=== PATIENT | male | born 1955 | race Caucasian/White ===

== ENCOUNTER 2024-12-08 11:13 | Emergency (ER) | payer MEDICARE, OTHER, SELFPAY ==
[2024-12-08 11:19] VITALS: BP 152/88; PULSE 96; RESP 18; TEMP 37.3; O2SAT 98; BMI 25.1
--- NOTE | 2024-12-08 11:33 | ED.MALEGU ---
HPI - Male Genitourinary General Chief complaint: Urogenital-Male Stated complaint: possible UTI or kidney infection Time Seen by Provider: 12/08/24 11:33 Source: patient Mode of arrival: Ambulatory History of Present Illness HPI Narrative: Patient is a 69-year-old male with a past medical history of colon and rectal cancer with surgical resection, does have a nephrostomy tube and right ileostomy tube this is all secondary to his history of cancer. Comes into the ED from home for evaluation of dysuria, polyuria, dark colored urine. He denies any other symptoms at this time. He states that he normally does not use his nephrostomy tube to his left, states that it is typically changed every 3 months. He states that he normally piece from his urethra. He denies any other symptoms at this time. Related Data Previous Rx's ?Medication ?Instructions ?Recorded cefpodoxime 200 mg tablet 200 mg PO Q12H 1 week #14 tabs 12/08/24 Allergies Allergy/AdvReac Type Severity Reaction Status Date / Time No Known Allergies Allergy Verified 12/08/24 11:24 Review of Systems Review of Systems Narrative: General: Denies fever, chills, weight loss HEENT: Denies headache, eye drainage, eye irritation, head trauma, sore throat, voice change Cardiovascular: Denies any chest pain, palpitations, tachycardia Respiratory: Denies any shortness of breath, cough, wheeze, stridor GI/: Positive dysuria, frequency Denies any abdominal pain, nausea, vomiting, diarrhea, bright red blood per rectum, melanotic stools MSK: Denies any joint pain, muscle pains, swelling Skin: Denies any rashes, lesions, discoloration Neuro: Denies any headache, lightheadedness, dizziness, fainting, weakness Psych: Denies SI/HI Patient History Social History Smoking Status: Never smoker Smoking Status: Never smoker Exam Narrative Exam Narrative: General: Cooperative, well-developed, not in acute distress HEENT: Normocephalic, atraumatic, PERRLA, normal sclera, eyelids normal Neck: Active full range of motion, atraumatic Chest: Normal to inspection, negative crepitus, no overlying erythema ecchymosis Respiratory: Normal respiratory effort, not in acute respiratory distress, clear to auscultation bilaterally negative cough, wheeze, tachypnea, rhonchi, rales Cardiology: Regular rate rhythm negative gallop, murmur, rubs GI/: Ileostomy bag in place draining appropriately, nephrostomy to the left side, does have little bit of drainage, No tenderness to palpation, soft, non rigid, normal to inspection, exam deferred MSK: Full active range of motion in all 4 extremities, atraumatic, no tenderness to palpation of any bony prominences Skin: No rashes or lesions noted Neuro: Alert awake oriented x3, moves all 4 extremities spontaneously, cranial nerves intact, able to answer all questions appropriately follows commands appropriately Psych: Cooperative, negative suicidal or homicidal ideations Initial Vital Signs Initial Vital Signs: Vital Signs Temperature 99.1 F 12/08/24 11:19 Pulse Rate 96 H 12/08/24 11:19 Respiratory Rate 18 12/08/24 11:19 Blood Pressure 152/88 H 12/08/24 11:19 Pulse Oximetry 98 12/08/24 11:19 Oxygen Delivery Method Room Air 12/08/24 11:19 Course Orders Ordered: ED Orders 12/08/24 11:35 Urinalysis and Microscopic Stat Urine Culture Stat Urine Culture Stat 12/08/24 11:50 CBC Auto Diff [Complete Blood Count AUTO DIFF] Stat CMP [Comprehensive Metabolic Panel] Stat Ondansetron HCl (Ondansetron 4 Mg/2 Ml Inj) 4 mg IV NOW PRN PRN Reason: Nausea And Vomiting Ondansetron HCl (Ondansetron 4 Mg Odt) 4 mg PO NOW PRN PRN Reason: Nausea And Vomiting Discontinued Medications Ceftriaxone Sodium 1,000 mg/ (Sodium Chloride) 100 mls @ 200 mls/hr IV NOW ONE Stop: 12/08/24 12:25 Vital Signs Vital signs: Vital Signs - 8 hr 12/08/24 11:19 Temperature 99.1 F Pulse Rate 96 H Respiratory Rate 18 Blood Pressure 152/88 H Pulse Oximetry 98 Oxygen Delivery Method Room Air MDM - Male Genitourinary Lab Data 12/08/24 11:50 12/08/24 11:50 Labs: Lab Results 12/08/24 12/08/24 Range/Units 11:35 11:50 WBC 6.2 (4.5-11.0) X10^3/uL RBC 4.26 L (4.5-5.9) X10^6/uL Hgb 12.5 L (13.5-17.5) g/dL Hct 36.9 L (41-53) % MCV 86.6 (80-100) fL MCH 29.4 (26-34) PG MCHC 33.9 (30-36) % RDW 15.0 H (11.6-14.8) % Plt Count 180 (150-400) X10^3/uL Neut % (Auto) 76.1 H (50-75) % Lymph % (Auto) 9.5 L (25-40) % Potter % (Auto) 11.4 (3-14) % Eos % (Auto) 2.6 (2-4) % Baso % (Auto) 0.4 (0-2) % Neut # (Auto) 4700 (1495-6408) /uL Lymph # (Auto) 600 L (9457-7722) /uL Potter # (Auto) 700 (0-900) /uL Eos # (Auto) 200 (0-450) /uL Baso # (Auto) 0 (0-100) /uL Sodium 132 L (137-145) mmol/L Potassium 3.6 (3.4-5.1) mmol/L Chloride 104 (98-107) mmol/L Carbon Dioxide 16 L (22-32) mmol/L BUN 20 (9-20) mg/dL Creatinine 1.39 H (0.66-1.25) mg/dL Estimated GFR 55 L (>60) mL/min BUN/Creatinine Ratio 14.4 (6-22) Glucose 98 (70-99) mg/dL Calcium 8.7 (8.4-10.2) mg/dL Total Bilirubin 1.4 H (0.2-1.3) mg/dL AST 22 (17-59) IU/L ALT 15 (<50) IU/L Alkaline Phosphatase 75 (38-126) U/L Total Protein 7.4 (6.3-8.2) g/dL Albumin 3.9 (3.5-5.0) g/dL Globulin 3.5 (1.7-4.1) g/dL Albumin/Globulin Ratio 1.1 (1.0-2.8) Urine Color Yellow Urine Appearance Clear Urine pH 6.5 (4.5-8.0) Ur Specific [place] <=1.005 (1.000-1.035) Urine Protein 1+ H (Negative) Urine Glucose (UA) Negative (Negative) g/dL Urine Ketones Negative (NEGATIVE) Urine Occult Blood 2+ H (Negative) Urine Nitrate Positive H (Negative) Urine Bilirubin Negative (NEGATIVE) Urine Urobilinogen 0.2 (0.2) E.U./dL Ur Leukocyte Esterase 3+ H (NEGATIVE) Urine RBC 1-5/hpf (0-5/HPF) Urine WBC 10-30/hpf H (0-5/HPF) Ur Squamous Epith Cells None seen (0-5/HPF) Urine Bacteria Many (>30) H (None) Ur Culture Indicated? Specimen cultured Vol Urine Centrifuged 10ml (spun) MDM Narrative Medical decision making narrative: Patient is a 69-year-old male who has a left-sided nephrostomy tube and ileostomy after surgical resection for his history of colon and rectal cancer. Comes into the ED from home for evaluation of dysuria frequency foul-smelling urine, ongoing persistent for the past 3 days, he states that he normally does urinate from his urethra, he states that he barely uses his nephrostomy tube normally gets it changed every 3 months. States that he did hook it up yesterday with very mild amount of drainage which he states it is normal. He denies any other symptoms at this time. On my exam ileostomy bag looks appropriate, nephrostomy tube to the left side without any surrounding erythema ecchymosis gross deformity or pain. Patient had lab work and urinalysis performed here in the emergency department. Patient lab work unremarkable, however urinalysis was consistent with acute urinary tract infection, patient was given 1 g Rocephin and sent home with oral antibiotics and instructed to follow up with his care team. He verbalized understanding of this and agrees to being discharged home with outpatient follow up Discharge Plan Departure Patient Disposition: Home Clinical Impression: Urinary tract infection Instructions: DI for Urinary Tract Infection (UTI) Activity Restrictions/Additional Instructions: Please follow up with your care team Please read the discharge instructions sheet carefully and bring all papers to all doctor follow-up visits, as it may contain information that your doctor may want to see. Disease processes change and evolve, if your symptoms worsen or if you develop any new symptoms that are concerning to you please return for evaluation. Your evaluation today does not show any evidence of any life-threatening/serious illnesses requiring admission to the hospital or surgery. Please follow-up with your doctor for re-evaluation in approximately 1 day. Seek immediate medical attention for any worrisome symptoms. *If you do not have a primary care provider please contact the [facility] Resource line at [phone]. They will ask some questions about your medical history and help get you set up with a doctor in the community. Prescriptions: New cefpodoxime 200 mg tablet 200 mg PO Q12H 7 Days Qty: 14 0RF Rx Instructions: must administer with a meal/food Stand Alone Forms: Patient Portal/API
[2024-12-08 11:56] LABS: Appearance Urine UA CLEAR; Bilirubin Urine UA NEGATIVE (NEGATIVE); Color Urine UA YELLOW; Glucose Urine UA NEGATIVE (Negative); Ketones Urine UA NEGATIVE (NEGATIVE); Leukocyte Esterase Urine UA 3+ (NEGATIVE); Nitrite Urine UA POSITIVE (Negative); Occult Blood Urine UA 2+ (Negative); Protein Urine UA 1+ (Negative); Specific Gravity Urine UA <=1.005 (1.000-1.035); Urobilinogen Urine UA 0.2 E.U./dL (0.2); pH Urine UA 6.5 (4.5-8.0)
[2024-12-08 11:58] VITALS: PULSE 86; O2SAT 98
[2024-12-08 11:59] LABS: Add Manual Diff / Slide Review NO; Hematocrit 36.9 % (41-53); Hemoglobin 12.5 g/dL (13.5-17.5); Lymphocytes Absolute Auto 600 /uL (1100-4500); Mean Corpuscular HGB Conc 33.9 % (30-36); Mean Corpuscular Hemoglobin 29.4 PG (26-34); Mean Corpuscular Volume 86.6 fL (80-100); Platelet Count 180 X10^3/uL (150-400)
[2024-12-08 11:59] LABS: Culture Indicated Urine Specimen Cultured
[2024-12-08 12:00] VITALS: PULSE 87; O2SAT 98
[2024-12-08 12:14] LABS: Alanine Aminotransferase 15 IU/L (<50); Albumin 3.9 g/dL (3.5-5.0); Albumin Globulin Ratio 1.1 (1.0-2.8); Alkaline Phosphatase 75 U/L (38-126); Blood Urea Nitrogen 20 mg/dL (9-20); Calcium 8.7 mg/dL (8.4-10.2); Carbon Dioxide 16 mmol/L (22-32); Chloride 104 mmol/L (98-107); Estimated Glomerular Filt Rate 55 mL/min (>60); Globulin 3.5 g/dL (1.7-4.1); Glucose 98 mg/dL (70-99); HEMOLYSIS < 15 (0-50); Potassium 3.6 mmol/L (3.4-5.1); Sodium 132 mmol/L (137-145); Total Protein 7.4 g/dL (6.3-8.2)
[2024-12-08 12:30] VITALS: PULSE 86; O2SAT 97
[2024-12-08 13:21] VITALS: BP 118/77; PULSE 84; RESP 16; O2SAT 98
== END 2024-12-08 13:22 | disposition home or self-care (01) ==
PROVIDERS: Emergency Provider Student in an Organized Health Care Education/Training Program
DX: N39.0 Urinary tract infection, site not specified (principal); Z93.6 Other artificial openings of urinary tract status; Z93.2 Ileostomy status; Z85.038 Personal history of other malignant neoplasm of large intestine; Z85.048 Personal history of other malignant neoplasm of rectum, rectosigmoid junction, and anus
CPT/HCPCS: 36415; 80053; 81001; 85025; 87077; 87086; 87186; 96365; 99284; J0696